=== PATIENT | male | born 1960 | race Caucasian/White ===

== ENCOUNTER → 2024-02-07 17:30 | Outpatient (REF) | payer BC, SELFPAY | LOC: MRI 17:30 | PROVIDERS: ATTENDING PHYSICIAN Otolaryngology; FAMILY PHYSICIAN Internal Medicine | DX: C01 Malignant neoplasm of base of tongue (principal); C10.9 Malignant neoplasm of oropharynx, unspecified | CPT/HCPCS: 70543; A9575 ==

== ENCOUNTER → 2024-02-23 07:15 | Outpatient (REF) | payer BC, SELFPAY | LOC: RAD 07:15 | PROVIDERS: ATTENDING PHYSICIAN Physician Assistant; FAMILY PHYSICIAN Internal Medicine | DX: E83.110 Hereditary hemochromatosis (principal) | CPT/HCPCS: 76700 ==

== ENCOUNTER → 2024-04-30 07:40 | Outpatient (REF) | payer BC, SELFPAY | LOC: RAD 07:40 | PROVIDERS: ATTENDING PHYSICIAN Internal Medicine Rheumatology; FAMILY PHYSICIAN Internal Medicine | DX: M81.0 Age-related osteoporosis without current pathological fracture (principal); Z13.820 Encounter for screening for osteoporosis | CPT/HCPCS: 77080 ==

== ENCOUNTER → 2024-08-06 16:56 | Outpatient (REF) | payer OTHER, SELFPAY | LOC: RAD 16:56 | PROVIDERS: ATTENDING PHYSICIAN Otolaryngology; FAMILY PHYSICIAN Internal Medicine | DX: C01 Malignant neoplasm of base of tongue (principal) | CPT/HCPCS: 71260; Q9967 ==

== ENCOUNTER → 2024-08-21 21:14 | Outpatient (REF) | payer OTHER, SELFPAY | LOC: MRI 3T 21:14 | PROVIDERS: ATTENDING PHYSICIAN Otolaryngology; FAMILY PHYSICIAN Internal Medicine | DX: C01 Malignant neoplasm of base of tongue (principal) | CPT/HCPCS: 70543; A9575 ==

== ENCOUNTER → 2025-02-07 18:30 | Outpatient (REF) | payer BC, SELFPAY | LOC: MRI 3T 18:30 | PROVIDERS: ATTENDING PHYSICIAN Radiology Radiation Oncology; FAMILY PHYSICIAN Internal Medicine | DX: C61 Malignant neoplasm of prostate (principal) | CPT/HCPCS: 72197; A9575 ==

== ENCOUNTER → 2025-04-16 15:47 | Outpatient (REF) | payer BC, SELFPAY | LOC: MRI 3T 15:47 | PROVIDERS: ATTENDING PHYSICIAN Otolaryngology; FAMILY PHYSICIAN Internal Medicine | DX: C01 Malignant neoplasm of base of tongue (principal) | CPT/HCPCS: 70543; A9575 ==